=== PATIENT | male | born 1940 | race Caucasian/White ===

== ENCOUNTER 2020-04-28 13:19 | Inpatient (IN) | payer MEDICAID, OTHER ==
[2020-04-28 20:09] VITALS: BP 138/79
[2020-04-28] MEDS ORDERED: Magnesium Hydroxide (MOM) 30 mL UDC PO PRN (20:13)
--- NOTE | 2020-04-29 14:19 | History & Physical ---
ADMIT DATE: 04/28/2020 CHIEF COMPLAINT: Agitation. HISTORY OF PRESENT ILLNESS: We have a 79-year-old male with hypertension, anxiety, dementia, who was transferred due to agitation towards the staff. The patient was being belligerent and was not easily managed, so they brought him here. The patient is not able to give any history. The patient's history was obtained by review of records. PAST MEDICAL HISTORY: 1. Dementia. 2. Hypertension. 3. Anxiety. PAST SURGICAL HISTORY: None. MEDICATIONS: List reviewed. ALLERGIES: None. SOCIAL HISTORY: Tobacco, IV drugs, ETOH negative. REVIEW OF SYSTEMS: Unobtainable. PHYSICAL EXAMINATION: VITAL SIGNS: Temperature is 98.1, pulse 54, respirations 20, blood pressure 130/79, satting 97% on room air. HEENT: Normocephalic, atraumatic head exam. NECK: Supple. CARDIOVASCULAR: Regular rate and rhythm. LUNGS: Decreased breath sounds. ABDOMEN: Soft, nontender. EXTREMITIES: No edema, cyanosis, or clubbing. NEUROLOGIC: Cranial nerve exam is difficult to perform due to lack of cooperation. ASSESSMENT: 1. Dementia with behavioral manifestations. 2. Hypertension. 3. Anxiety. PLAN: The patient will be started on Seroquel and other agents. The patient's blood pressure will be managed by me. JOB# [id number]
--- NOTE | 2020-04-29 15:38 | Psychiatric Evaluation ---
DATE OF SERVICE: 04/28/2020 AGE: 79. SEX: Male. PHYSICIAN: Dr. Lujan. CHIEF COMPLAINT: Agitation. HISTORY OF PRESENT ILLNESS: The patient is a 79-year-old male who was transferred from [facility] because of increased agitation towards the staff. Chart reviewed and the patient interviewed. The patient is rambling and severely irritable. The patient also is suspicious and is paranoid. He was not able to give me any information and he was having thought processes that are incoherent. He kept rambling and he was not able to give any accurate information. The patient also is sexually inappropriate towards the female staff. During interview, the patient was not able to answer question regarding marriage or children. PAST PSYCHIATRIC HISTORY: Not clear if the patient was in any psychiatric hospitals before and the patient was not able to give me any answer. The patient was seen by Dr. Thomas in [facility]. PAST MEDICAL HISTORY: Nothing reported. FAMILY PSYCHIATRIC AND CHEMICAL DEPENDENCY HISTORY: Nothing reported. SOCIAL HISTORY: The patient lives in [facility]. The patient said "I have no children," but is not clear at this time about marriage or any other relationships. ALLERGIES: No known allergies. CHEMICAL DEPENDENCY HISTORY: The patient did not answer question regarding alcohol or drug use and kept rambling and talking to himself and was unclear answers. MENTAL STATUS EXAMINATION: The patient appears his stated age. Anxious. Irritable mood. Pressured speech. Thought processes are circumstantial with flight of ideas. The patient did not answer questions regarding hallucinations or delusions or regarding suicide or homicide. The patient is alert, but seems to be disoriented to time, place, person and situation. Impaired immediate, recent and remote memories and he was not able to tell me even his date. Poor insight and he does not know where he is at or what for. Poor judgment and he was fighting with the staff in the correction. ASSESSMENT: PRIMARY DIAGNOSIS: Unspecified psychosis. Rule out dementia with psychosis and behavioral disturbances. TREATMENT PLAN: We will monitor the patient's behavior closely. Also, we will start the patient on Seroquel and we will adjust the dose. Also, we will work on behavioral modification. Also give the patient Seroquel and we will also work on his asexual inappropriate behavior. ESTIMATED LENGTH OF STAY: 5-7 days. PATIENT'S STRENGTHS AND WEAKNESSES: The patient's strength is not clear at this time. Weakness is his poor impulse control and irritability. AFTER DISCHARGE PLANS: Outpatient treatment and followup, continue as an outpatient. Also, the patient to return to [facility] upon discharge. [facility]# [id number]
[2020-04-30] MEDS ORDERED: Haloperidol Lactate 5 mg/mL 1mL Vial IM PRN (06:54)
--- NOTE | 2020-04-30 07:09 | Progress Notes ---
DATE: 04/30/2020 SUBJECTIVE: A 79-year-old male transferred from [place] with agitation. On [id number], I said ranjith. The patient gets up, basically rushes towards me. Staff has to get involved, starts yelling, apparently sexually inappropriate, yelling, screaming at me this morning to the point that I tried to ask him to calm down. He showed ongoing agitation, hard to settle down. I am not really even able to interview him. Unfortunately, staff noting he is really aggressive, asking for an increase of his medications, Haldol cocktail required this morning. ASSESSMENT: The patient combative, agitated, yelling, posturing toward me. Needing a 5 to 15 Haldol cocktail. I will be increasing dosing of Seroquel today. JOB# [id number]
[2020-04-30] MEDS: Multivitamin w/ Minerals Tab PO SCH (11:07)
--- NOTE | 2020-05-01 07:09 | Progress Notes ---
DATE: SUBJECTIVE: The patient in the hospital, was really agitated yesterday, posturing, needed emergency doses of medications, erratic medication compliance, calmer this morning, but easily triggered, easily agitated, paranoid. I have been adjusting his dosing of medications. He seems somewhat calmer, slept for about 7 hours, awake this morning, still talking to self, hyperverbal, labile, verbally threatening staff, easily agitated, aggressive, concerns that he may strike out at staff, paces. ASSESSMENT: The patient is still hostile, aggressive, needing emergency dosing of medications on p.r.n. dosing of Haldol given the extent and severity of how aggressive he can become, age 79, but is quite limber and strong. PLAN: We will continue inpatient monitoring, ongoing safety concerns, mostly concerns for the safety of those around him. I will be titrating his dosing of Seroquel today. JOB# [id number]
[2020-05-01] MEDS: Multivitamin w/ Minerals Tab PO SCH (09:45)
[2020-05-02] MEDS: Multivitamin w/ Minerals Tab PO SCH (08:37)
--- NOTE | 2020-05-02 22:47 | Progress Notes ---
DATE: 05/02/2020 SUBJECTIVE: Chart reviewed and the patient interviewed. Also discussed the patient's condition with the staff and reviewed records and labs. The patient is loud and he is still extremely irritable and agitated. The patient also is restless and he still has severe mood swings and easily agitated. The patient still occasionally needs emergency medications to calm him down. Otherwise, the patient is compliant with taking his medications with no side effects of medications. ASSESSMENT: The patient is still psychotic and agitated. TREATMENT PLAN: Continue to monitor his behavior and his condition closely. Also, continue adjusting psychotropic medications and work on behavioral modification. JOB# [id number]
[2020-05-03] MEDS: Multivitamin w/ Minerals Tab PO SCH (08:36)
--- NOTE | 2020-05-03 21:26 | Progress Notes ---
DATE: SUBJECTIVE: Chart reviewed and the patient interviewed. Also discussed the patient's condition with the staff and reviewed records and labs. The patient continued to have severe mood swings. The patient also is still in irritable and angry mood. The patient also is still paranoid and suspicious. Otherwise, the patient needs lots of redirections and he is also compliant with taking his medications with no side effects. The patient earlier snapped the trash can and almost threw with all over the place. He still needs close monitoring because of his agitation and irritability. ASSESSMENT: The patient is still agitated. TREATMENT PLAN: Continue Seroquel 75 mg twice a day and Remeron 7.5 mg at bedtime and Ativan on a p.r.n. basis. Also, continue to work on his irritability and his mood swings. JOB# [id number]
[2020-05-04] MEDS: Multivitamin w/ Minerals Tab PO SCH (08:43)
--- NOTE | 2020-05-04 09:36 | Progress Notes ---
DATE: 05/04/2020 SUBJECTIVE: Chart reviewed and the patient interviewed. Also discussed the patient's condition with the staff and reviewed records and labs. The patient is still suspicious and is still paranoid. The patient also is still unpredictable and all of a sudden, he snaps at other patients and was yelling and screaming at them for no reason. The patient also is still in irritable and angry mood. He also is still actively hallucinating and actively talking to himself and has unpredictable behavior including aggressive to others. Otherwise, the patient is compliant with taking medications with no side effects of medications. ASSESSMENT: The patient is still aggressive and agitated and can be dangerous to others. TREATMENT PLAN: Seroquel was increased to 75 mg 3 times a day. We will continue current dose. Also, continue to work on his irritability and his anger and poor impulse control and continue to follow up. JOB# [id number]
[2020-05-05] MEDS: Multivitamin w/ Minerals Tab PO SCH (08:38)
--- NOTE | 2020-05-05 23:10 | Progress Notes ---
DATE: 05/05/2020 SUBJECTIVE: Chart reviewed and the patient interviewed. Also discussed the patient's condition with the staff and reviewed records and labs. The patient is still agitated, but his affect is brighter. The patient also is easier to follow directions. The patient also is still having episodes of irritability and anger with severe mood swings. The patient also is still at times threatening others. Otherwise, the patient continued to comply with taking his medications with no side effects of medications. ASSESSMENT: The patient is still agitated and psychotic. TREATMENT PLAN: Continue to monitor his behavior and his condition closely. Also, continue to work on his irritability as well as his discharge plans. JOB# [id number]
[2020-05-06] MEDS: Multivitamin w/ Minerals Tab PO SCH ×2 (08:59→10:04)
--- NOTE | 2020-05-06 17:12 | Progress Notes ---
DATE: 05/06/2020 SUBJECTIVE: Chart reviewed and the patient interviewed. Also discussed the patient's condition with the staff and reviewed records and labs. The patient continued to be in angry and in irritable mood. The patient also is still hyperverbal and suspicious and paranoid. He also still needs redirections. On the other hand, the patient is interacting more with peers and others and he is easier to redirect him. Otherwise, the patient is also compliant with medications and no side effects of medications. ASSESSMENT: The patient is still agitated, but easier to redirect him. TREATMENT PLAN: Planning to continue monitoring his behavior and his condition closely. Also, COVID-19 test results are still pending and working on discharge plans. JOB# [id number]
[2020-05-07] MEDS: Multivitamin w/ Minerals Tab PO SCH (08:25)
--- NOTE | 2020-05-07 21:32 | Progress Notes ---
DATE: 05/07/[address] Lujan. IDENTIFYING DATA: This is a 79-year-old male brought in here from a convalescent home for increased agitation towards staff and presently incoherent, disorganized and paranoid. Reconciliation reviewed, currently on mirtazapine 7.5 and Seroquel 75 t.i.d. Today on klpi-qa-vcah evaluation, refuses to be interviewed, attempted to validate the patient's emotions. He continues to become irritable upon approach, disengaged. As early as yesterday, the patient continues to be irritable and agitated. MENTAL STATUS EXAMINATION: Paranoid, suspicious, hyperverbal. ASSESSMENT AND PLAN: Due to the patient's ongoing suspicious behavior, unable to form a safe plan outside of structured environment. We will continue with primary psychiatrist's treatment plan. JOB# [id number]
[2020-05-08] MEDS: Multivitamin w/ Minerals Tab PO SCH (08:27)
--- NOTE | 2020-05-08 14:31 | Progress Notes ---
DATE: 05/08/2020 SUBJECTIVE: The patient was seen and evaluated. The patient's chart was reviewed. Covering for Dr. Lujan. Today on [id number] evaluation, the patient reports that his mood is feeling better. He misses home, but unable to elaborate what specifically is home. MENTAL STATUS EXAMINATION: Mildly ____, poor historian, alcohol, disengaged. ASSESSMENT AND PLAN: This is a 79-year-old male who continues to need a lot of redirection. No side effects were endorsed. We will continue current medication regimen and will continue working very closely with medical records analyst for safe disposition when further psychiatric ____. JOB# [id number]
[2020-05-09] MEDS: Multivitamin w/ Minerals Tab PO SCH (08:58)
--- NOTE | 2020-05-09 12:21 | Progress Notes ---
DATE: 05/09/2020 Case was discussed with staff of the patient, reviewed records. Covering for Dr. Lujan. A 79-year-old male who was transferred from [facility] because of increasing agitation towards the staff. The patient was rambling, severely irritable, suspicious, paranoid, was not able to give much information. The patient is unable to give any previous history. The patient is demented, confused, unable to participate in meaningful conversation, unable to be specific about his symptoms. He is not sure where home is, although he reported feeling better. No side effects with the medication, no sedation, no nausea, no extrapyramidal symptoms. He is on the Seroquel 75 mg 3 times a day and mirtazapine 7.5 mg at bedtime with no side effects, no sedation, no nausea, no extrapyramidal symptoms. We will continue outpatient group therapy, milieu therapy, and adjust the medication as needed. JOB# [id number]
[2020-05-10] MEDS: Multivitamin w/ Minerals Tab PO SCH (08:25)
--- NOTE | 2020-05-10 21:09 | Progress Notes ---
DATE: 05/10/2020 Case was discussed with staff of the patient, reviewed records. The patient continues to have episodes of agitation, irritability, rambling speech, unable to make safe plan for self-care, isolating himself. He is demented, confused. No side effects from the medication, no sedation, no nausea, no extrapyramidal symptoms. We will continue outpatient group therapy, milieu therapy, and adjust medications as needed. [facility]# [id number]
[2020-05-11] MEDS: Multivitamin w/ Minerals Tab PO SCH ×2 (08:09→11:45)
--- NOTE | 2020-05-11 19:29 | Progress Notes ---
DATE: SUBJECTIVE: Chart reviewed and the patient interviewed. Also discussed the patient's condition with the staff and reviewed records and labs. The patient is anxious, but he is calmer and easier to redirect. The patient also is interacting more with peers and with others. He is still confused and still needs redirections. At times, the patient refuses to take medicine, but he is taking it most of the time. No major behavioral problems. ASSESSMENT: The patient is less irritable and still needs placement. TREATMENT PLAN: Continue monitoring behavior and continue working on placement for the patient. Also, continue adjusting psychotropic medications and work on behavioral modification. JOB# [id number]
[2020-05-12] MEDS: Multivitamin w/ Minerals Tab PO SCH (08:24)
--- NOTE | 2020-05-12 08:32 | Progress Notes ---
DATE: 05/12/2020 SUBJECTIVE: Chart was reviewed and the patient interviewed. Also discussed the patient's condition with the staff and reviewed records and labs. The patient is calmer and less irritable and less agitated. The patient also is interacting more with peers and with others. He denies any intention to harm himself or others. Otherwise, the patient is compliant with taking his medications with no side effect of medications. ASSESSMENT: The patient is not suicidal or homicidal. TREATMENT PLAN: We will discharge the patient today. Outpatient treatment and followup to continue as an outpatient. JOB# [id number]
[2020-05-13] MEDS: Multivitamin w/ Minerals Tab PO SCH (08:21)
--- NOTE | 2020-05-14 00:44 | Progress Notes ---
DATE: SUBJECTIVE: Chart reviewed and the patient interviewed. Also discussed the patient's condition with the staff and reviewed records and labs. The patient is still in the hospital waiting for COVID virus test. He is still anxious and restless, but easy to redirect him. The patient denies any hallucinations or delusions and denies any thoughts of suicide or homicide. The patient also is compliant with taking his medications with no side effects of medications. ASSESSMENT: The patient is still agitated and he still needs monitoring, but also waiting for ____ to discharge him. TREATMENT PLAN: Continue monitoring behavior and continue to work on his discharge plans and placement issue. JOB# [id number]
[2020-05-14] MEDS: Multivitamin w/ Minerals Tab PO SCH (09:01)
--- NOTE | 2020-05-14 17:40 | Progress Notes ---
DATE: 05/14/2020 Case was discussed with staff of the patient, reviewed records. This is a well-known case I have seen him before covering for Dr. Lujan. The patient continues to isolate himself. He is awaiting COVID-19 test. He continues to be anxious. He continues to be redirectable. He denies any visual hallucination. No suicidal, no homicidal ideation. Taking medication with no side effects, though he continues to have episodes of agitation, irritability medications are being adjusted and Seroquel was increased to 75 mg 3 times a day and he is on mirtazapine 7.5 mg at bedtime. No side effects with the medication, no sedation, no nausea. I will continue to work with the patient in group therapy, milieu therapy, and adjust the medication as needed. JOB# [id number]
[2020-05-15] MEDS: Multivitamin w/ Minerals Tab PO SCH (09:14)
--- NOTE | 2020-05-15 19:59 | Progress Notes ---
DATE: 05/15/2020 Case was discussed with staff of the patient, reviewed records. The patient has been isolating himself. The patient is waiting for COVID-19 test to be discharged. He has been anxious about it. He is redirectable. He denies any current suicidal ideation, no homicidal ideation. No side effects with the medication, no sedation, no nausea, sleeping better, eating better, and working on discharge plan after COVID-19 comeback hopefully negative. We will continue outpatient group therapy, milieu therapy, adjust medication as needed. JOB# [id number]
[2020-05-16] MEDS: Multivitamin w/ Minerals Tab PO SCH (09:33)
--- NOTE | 2020-05-16 20:52 | Progress Notes ---
DATE: 05/16/2020 SUBJECTIVE: Chart reviewed and the patient interviewed. Also discussed the patient's condition with the staff and reviewed records and labs. The patient is still anxious and is still restless. The patient also still awaiting for his discharge. The patient also still has mood swings, but no major behavioral problems. ASSESSMENT: The patient is still restless and anxious, but no major behavioral problems. TREATMENT PLAN: Continue to monitor behavior and condition closely. Also, continue to work on discharge plans and on placement issue. JOB# [id number]
[2020-05-17] MEDS: Multivitamin w/ Minerals Tab PO SCH (09:24)
--- NOTE | 2020-05-17 19:39 | Progress Notes ---
DATE: SUBJECTIVE: Chart reviewed and the patient interviewed. Also discussed the patient's condition with the staff and reviewed records and labs. The patient's affect is brighter, but he is still rambling and his thought processes are circumstantial with no flight of ideas. The patient also still needs redirections. The patient also is still suspicious and paranoid. ASSESSMENT: The patient is still anxious, but no behavioral issues or behavioral problems. TREATMENT PLAN: Continue monitoring behavior and condition. Also, continue to work on discharge plans and placement issue. JOB# [id number]
[2020-05-18] MEDS: Multivitamin w/ Minerals Tab PO SCH (08:42)
--- NOTE | 2020-05-18 13:18 | Progress Notes ---
DATE: 05/18/2020 Case was discussed with staff of the patient, reviewed records. Covering for Dr. Lujan. This is pt seen before Covering for Dr. Lujan. The patient is brighter. Continues to have episodes, he is rambling. He is circumstantial. He is sleeping better, eating better, continues redirection, continue with paranoid, continues to have poor insight, _he agreed to go to a lesser level of care. No side effects with the medication, no sedation, no nausea, no extrapyramidal symptoms and we will continue to work with the patient in group therapy, milieu therapy, adjust medication as needed. JOB# [id number]
[2020-05-19] MEDS: Multivitamin w/ Minerals Tab PO SCH (08:35)
[2020-05-20] MEDS: Multivitamin w/ Minerals Tab PO SCH (08:29)
--- NOTE | 2020-05-20 18:12 | Progress Notes ---
DATE: 05/20/2020 SUBJECTIVE: Chart reviewed and the patient interviewed. Also discussed the patient's condition with the staff and reviewed records and labs. The patient is calm and cooperative. He is still slightly confused and rambling and restless, but at the same time, the patient is able to follow directions and he is trying to interact more with peers and with the staff. The patient also is easy to follow directions. Otherwise, the patient is compliant with taking his medications with no side effects of medications. The patient is supposed to be discharged to [facility] but for some reason social psychologist said that unable to discharge the patient now and [facility] still did not accept the patient to go there. At the same time, the patient is calm and is more cooperative and working on his discharge plans. ASSESSMENT: The patient is more cooperative, but still needs to work on his discharge placement. TREATMENT PLAN: Continue with discharge plans and placement issue. JOB# [id number]
--- NOTE | 2020-05-20 19:30 | Progress Notes ---
DATE: 05/19/2020 SUBJECTIVE: Chart reviewed and the patient interviewed. Also discussed the patient's condition with the staff and reviewed records and labs. I also discussed the case with mental health case manager/discharge plan as to confirm that the patient can return to [facility]. The patient is calm and cooperative. Also, he is interacting appropriately and no major behavior problems. Also compliance with taking his medications with no side effects of medications. ASSESSMENT: The patient is not suicidal or homicidal. TREATMENT PLAN: Planning to discharge the patient today to [facility]. Outpatient treatment and followup will continue there. JOB# [id number]
[2020-05-21] MEDS: Multivitamin w/ Minerals Tab PO SCH (08:17)
--- NOTE | 2020-05-21 14:26 | Progress Notes ---
DATE: 05/21/2020 Covering for Emma Lujan MD SUBJECTIVE: The patient was interviewed. Case was discussed with staff. Chart and records were reviewed. Per the staff, the patient likes to be called ____. The patient has not been taking his medications. He has been paranoid. He has been writing swastikas all over the ma. The patient was visited at bedside today. He is disheveled. He is malodorous. He reports that he wants to go home, but he has no place to go. He reports "sometimes," when I asked if he is going to take his medications. He also appears to be responding to internal stimuli, talking to unseen others and has no plan for self-care. MENTAL STATUS EXAMINATION: The patient is disheveled male lying in his hospital bed, poor eye contact. Speech is mumbled. Mood and affect appear to be blunted. Thought process appears to be loose at this time. Unable to assess for any suicidal or homicidal thoughts, but the patient does appear to be paranoid, responding heavily to internal stimuli. He is alert and oriented x 2. Insight, judgment and impulse control appear to be poor at this time. ASSESSMENT AND PLAN: We will continue the patient's acute psychiatric hospitalization. We encouraged the patient to remain medication adherent. We also encouraged the patient to verbalize his needs and participate in group and milieu therapy. JOB# [id number]
[2020-05-22] MEDS: Multivitamin w/ Minerals Tab PO SCH ×2 (09:25→09:34)
--- NOTE | 2020-05-22 11:00 | Progress Notes ---
DATE: 05/22/[address] Emma Lujan. SUBJECTIVE: The patient was interviewed. Case was discussed with staff. Chart and records were reviewed. Per the staff, the patient was able to sleep for about 6 hours. He remains paranoid. He has episodes of combative behavior. He also is a disheveled and disorganized. The patient this morning was uncooperative, loud speech, responding heavily to internal stimuli, sexually inappropriate, gets easily angered and upset and has no plan for self-care. MENTAL STATUS EXAMINATION: The patient is a disheveled male, lying in bed, angry tone of speech. Mood and affect labile. Thought process is disorganized. Unable to assess for suicidal or homicidal thoughts, but the patient does get combative. The patient is also sexually preoccupied. He also is responding to internal stimuli. He is also paranoid. He is alert and oriented to person and place. Insight, judgment and impulse control remain very poor. ASSESSMENT AND PLAN: We will continue the patient's acute psychiatric hospitalization. We will continue his medications as prescribed. We will consider up titration of doses. No side effects have been noted. We will also encourage the patient to verbalize his needs and participate in groups and attend to his hygiene. [facility]# [id number]
--- NOTE | 2020-05-22 20:54 | Discharge Summary ---
DATE OF DISCHARGE: 05/19/2020 AGE: 79. SEX: Male. PHYSICIAN: Dr. Lujan. FINAL DIAGNOSIS AND PRIMARY DIAGNOSIS: Unspecified psychosis. SECONDARY DIAGNOSIS: Dementia, severe, with psychotic features and behavioral disturbances. REASON FOR HOSPITALIZATION: The patient was admitted to the hospital from [facility] because of increased agitation and irritability toward the staff. HOSPITAL COURSE: The patient continued to be in angry and in irritable mood. The patient also was having severe mood swings. The patient also was having episodes of severe anger that requires emergency Haldol injection. The patient started on Seroquel and the dose adjusted to 75 mg 3 times a day and Remeron 7.5 mg at __. Gradually, the patient's affect was brighter. The patient was less irritable and less agitated. The patient also interacted appropriately. At times, he was angry and irritable mood. The patient was supposed to be discharged from the hospital to [facility] and was holding admissions and did not accept the patient, but towards the end they accepted the patient back and the patient was discharged there. PHYSICAL EXAMINATION: The patient showed no major medical problems. DISCHARGE ACTIVITY: No restrictions. DISCHARGE DIET: Regular. EXPECTED OUTCOME AFTER DISCHARGE: Fair if the patient continues with his outpatient treatment and follow up with discharge plans. JOB# [id number]
[2020-05-23] MEDS: Multivitamin w/ Minerals Tab PO SCH (08:27)
[2020-05-23 13:55] LABS: CHOLESTEROL 243 mg/dL (<200); LDL CHOLESTEROL 164 mg/dL (0-129); TRIGLYCERIDES 218 mg/dL (30-150)
--- NOTE | 2020-05-23 22:37 | Progress Notes ---
DATE: 05/23/2020 Case was discussed with staff of the patient, reviewed records. The patient was supposed to have been discharged; however, he is still here, awaiting placement. He is sleeping well, eating well. The patient is demented and confused. No side effects with the medication, no sedation, no nausea, no extrapyramidal symptoms. He is awaiting placement ready to go. We will continue outpatient group therapy, milieu therapy, adjust medication as needed. JOB# [id number]
== END 2020-05-23 13:30 | DRG 885 ==
LOC: GERO 19:51
PROVIDERS: ADMIT Psychiatry & Neurology Psychiatry; ATTEND Psychiatry & Neurology Psychiatry
DX: F29 Unspecified psychosis not due to a substance or known physiological condition (principal); F03.91 Unspecified dementia, unspecified severity, with behavioral disturbance; I10 Essential (primary) hypertension; F41.9 Anxiety disorder, unspecified; Z20.828 Contact with and (suspected) exposure to other viral communicable diseases
CPT/HCPCS: 36415-UA; 80061-TC; 83036-90; 84443-TC; 90899; G0410; U0003-CS; Z7610